=== PATIENT | male | born 1960 | race Caucasian/White ===

== ENCOUNTER 2017-02-26 12:32 | Emergency (ER) | payer OTHER ==
[2017-02-26] MEDS ORDERED: DIPH,PERTUSS(ACELL),TET VAC/PF 0.5 ML DISP.SYRIN IM ONE (12:50)
[2017-02-26] MEDS ORDERED: SODIUM BICARBONATE 2.4 MEQ VIAL INJ ONE (12:53)
[2017-02-26] MEDS ORDERED: Lidocaine 1% 5ml(IM or SUTURE)(PAIN CLINIC) IJ ONE (12:53)
--- NOTE | 2017-02-26 12:57 | ED Physician Documentation ---
Syncope/Near Syncope - HISTORIAN Historian: patient, paramedics - [facility] Chief Complaint: Near Syncope Witnessed: No Position at Time of Episode: sitting Activity at Time of Episode: smoking a cigarette Symptoms Prior to Episode: none Character of Events(s): almost passed out Location of Injury: face (chin) Associated Symptoms: none Further Comments: yes (57 year old male patient brought in via EMS with laceration to chin. Patient reports he was outside smoking. States he stood up , got dizzy and fell to the ground. Patient denies any CP or SOB prior to episode. States " I smoked too fast". Patient reports feeling fine before going outside, denies loss of bowel or bladder with episode.) - ROS CONST: denies: recent illness, fever, cough, chills EYES/ENT: none GI/: denies: diarrhea, problems urinating MS/SKIN/LYMPH: denies: joint pain, leg swelling, rash, swollen glands, ankle swelling, other NEURO/PSYCH: denies: confusion, anxiety, depression, other - PAST HX Cardiac Disease: none PE Risk Factors: none Surgeries/Procedures: none Immunizations: tetanus (unknown, will up date today) Allergies/Adverse Reactions: Allergies Allergy/AdvReac Type Severity Reaction Status Date / Time No Known Allergies Allergy Verified 08/20/15 14:50 Home Medications: Ambulatory Orders Medication Instructions Recorded NK [NK] 08/20/15 - SOCIAL HX Smoking History: cigarettes - FAMILY HX Family History: denies: none - VITAL SIGNS Vital Signs: Vital Signs Temp Pulse Resp BP Pulse Ox 98.1 F 82 18 175/92 98 02/26/17 12:32 02/27/17 01:03 02/27/17 01:03 02/27/17 01:03 02/27/17 01:03 - REVIEWED ASSESSMENTS Nursing Assessment Reviewed: Yes Vitals Reviewed: Yes Procedures Wound Location: face (chin) Wound's Depth, Shape: linear (3.5) Wound Explored: clean Irrigated w/ Saline (ccs): 500 Betadine Prep?: No (chlorhexidine) Anesthesia: 1% Lidocaine Volume of Anesthetic: 5 Wound Repaired With: sutures Suture Size/Type: 6:0 Number of Sutures: 6 Layer Closure?: Yes Deep Layer Suture Size/Type: 6:0 Number Deep Layer Sutures: 2 Progress: Wound cleaned and irrigated with NS and chlorhexidine. No FB. Anesthetized with lidocaine with neut. Patient tolerated well. 5.0 vicryl x 2 sutures sub q sutures. 6.0 ethilon x 6 sutures- edges well approximated Patient now complaining of "worse headache of my life". will progress with CT head Progress - EKG/XRAY/CT EKG: NSR ED Results Lab/Radiology - Lab Results Lab Results: Lab Results 02/26/17 02/26/17 02/26/17 13:15 13:15 12:35 WBC 4.30 K/ul K/ul (4.00-12.00) RBC 4.45 M/ul M/ul (3.90-5.20) Hgb 15.4 g/dL g/dL (12.0-18.0) Hct 43.9 % % (37.0-53.0) MCV 98.6 fl fl (80.0-100.0) MCH 34.6 pg H pg (28.0-34.0) MCHC 35.1 g/dL g/dL (30.0-36.0) RDW 12.7 % % (11.3-14.3) Plt Count 119 K/mm3 L K/mm3 (130-400) Neut % (Auto) 55.1 % % (39.0-79.0) Lymph % (Auto) 35.6 % % (16.0-50.0) Galax % (Auto) 4.2 % % (0.0-11.0) Eos % (Auto) 3.0 % % (0.0-6.8) Baso % (Auto) 0.5 (0.0-1.5) Neut # (Auto) 2.4 # k/uL # k/uL (1.4-7.7) Lymph # (Auto) 1.5 # k/uL # k/uL (0.6-4.0) Galax # (Auto) 0.2 # k/uL # k/uL (0.0-0.9) Eos # (Auto) 0.1 # k/uL # k/uL (0.0-0.6) Baso # (Auto) 0.0 # k/uL # k/uL (0.0-0.5) Reactive Lymphs % 1.6 % % (0.0-5.0) Reactive Lymphs # 0.1 # k/uL # k/uL (0.0-0.8) Sodium 133 mmol/L L mmol/L (136-145) Potassium 3.6 mmol/L mmol/L (3.5-5.1) Chloride 96 mmol/L L mmol/L (98-107) Carbon Dioxide 27 mmol/L mmol/L (22-30) BUN 4 mg/dL L mg/dL (9-20) Creatinine 0.90 mg/dL mg/dL (0.66-1.25) Est GFR ( Amer) > 60 (60 - ) Est GFR (Non-Af Amer) > 60 (60 - ) Glucose 107 mg/dL H mg/dL (74-106) Calcium 8.8 mg/dL mg/dL (8.4-10.2) Total Bilirubin 0.9 mg/dL mg/dL (0.2-1.3) AST 65 U/L H U/L (15-46) ALT 66 U/L U/L (13-69) Alkaline Phosphatase 79 U/L U/L (38-126) Total Protein 7.2 g/dL g/dL (6.3-8.2) Albumin 4.1 g/dL g/dL (3.5-5.0) Influenza A (Rapid) Negative (NEGATIVE) Influenza B (Rapid) Negative (NEGATIVE) - Radiology Radiology Impressions: Examination: CT head without contrast History: Fall. Headache Comparison exam: None available Technique: Noncontrast head CT protocol. Findings: Ventricles and sulci are mildly prominent, though consistent for patient age. Cerebrocerebellar parenchyma demonstrates periventricular low attenuation consistent with small vessel disease. No evidence for parenchymal hemorrhage. No evidence for mass or mass effect. No midline shift. No extra axial fluid collections. Partial visualization of the paranasal sinuses, mastoid air cells, orbits, skull and scalp without gross irregularity. Vascular calcifications. Impression: Age related changes. No acute parenchymal process. No hemorrhage. - Orders Orders: ED Orders Category Date Time Status Orthostatics 1T Care 02/26/17 12:[address] BRAIN W/O CONTRAST Stat Exams 02/26/17 Completed CBC/PLATELET/DIFF Stat Lab 02/26/17 13:15 Completed CMP Stat Lab 02/26/17 13:15 Completed INFLUENZA A&B Stat Lab 02/26/17 12:35 Completed Diph,Pertuss(Acell),Tet Vac/Pf [Adacel] Med 02/26/17 12:50 Discontinued 0.5 ml IM .ONCE ONE Lidocaine 1% 5ml(IM or SUTURE) [Xylocaine] Med 02/26/17 12:53 Discontinued 50 mg IJ NOW ONE Sodium Bicarbonate [Neut] Med 02/26/17 12:53 Discontinued 2.4 meq INJ NOW ONE EKG WITH COMPARISON Stat Ther 02/26/17 12:50 Completed Syncope Physical Exam - Physical Exam General Appearance: mild distress EENT: nml eye inspection, PERRL, nml ENT inspection, no apparent trauma, pharynx nml, no CSF leak Respiratory: no resp distress, chest non-tender, breath sounds normal CVS: reg rate & rhythm, heart sounds normal, equal pulses, no murmur, no gallop , PMI nml, no JVD, no friction rub, 24 Abdomen: non-tender, no organomegaly, nml bowel sounds, no distention Skin: warm/dry, normal color, other (3.5 cm laceration to chin) Extremities: non-tender, normal range of motion, no evidence of injury, no edema , J, CUSTOMER SUCCESS MANAGER - Neuro/Psych Higher Functions: alert, oriented x3, no evidence of acute CVA, mood/affect nml Cranial Nerves: nml as tested Cerebellar: nml as tested, nml gait Sensorimotor: nml motor response, nml sensory response, nml reflexes, nml gait Discharge Clincal Impression: Near syncope Chin laceration Qualifiers: Encounter type: initial encounter Qualified Code(s): S01.81XA - Laceration without foreign body of other part of head, initial encounter Fall from standing Qualifiers: Encounter type: initial encounter Qualified Code(s): W19.XXXA - Unspecified fall, initial encounter Referrals: Primary Doctor,No [Primary Care Provider] - 2 Days Additional Instructions: Keep the wound clean and dry until it has healed. You can wash or shower after 24 hours. Do not soak the wound in water and make sure it is dry afterwards (gently pat the area dry with a clean towel). Do not get into a swimming pool, hot tub, malik or river until your stitches are removed. To remove your dressing, gently pull it off. If needed, you can dampen it with water then gently pull it off. Clean the laceration twice a day with hibiclens and rinse with water clean away any scabbed area Apply thin coat of antibiotic ointment after cleaning the wound. Cover with non-adherent bandage if able. If you have pain, take simple pain relief medication such as Tylenol or ibuprofen. If bandages or dressings get wet, they will need to be changed. Call your doctor for any signs of symptom of infection redness, drainage, pain. Have your stitches removed at your doctors office in 7-10 days. Discharged with bactroban ointment apply a thin coat twice a day. Return to ER if if you have any of the follow symptoms: 1.More sleepy or confused 2.Severe or worsening headache 3.Seizure 4.Vomiting, fever >101.5, or stiff neck 5.Loss of control or urine or bowel 6.Trouble walking 7.Use Tylenol every 4 hours as needed for Headache 8.Diet: Start with Clear liquids and advance diet as tolerated. . Condition: Stable Disposition: 01 HOME, SELF-CARE Decision to Admit: NO Decision Time: 14:27
[2017-02-26 13:23] LABS: BASOPHILS % 0.5 (0.0-1.5); MEAN CORPUSCULAR HEMOGLOBIN 34.6 pg (28.0-34.0); MEAN CORPUSCULAR VOLUME 98.6 fl (80.0-100.0); MONOCYTES % 4.2 % (0.0-11.0); NEUTROPHILS # 2.4 # k/uL (1.4-7.7)
[2017-02-26 13:35] LABS: eGFR (African) > 60; eGFR (Non-African) > 60
--- NOTE | 2017-02-26 14:36 | Diagnostic Imaging Report ---
[facility] [address] [facility] [address] [place], [place]. [address] Report Submission Date: Feb 26, 2017 2:25:31 PM GRINDER SET UP OPERATOR JIG Patient Study Name: ALINA BRUNO Date: Feb 26, 2017 2:02:56 PM GRINDER SET UP OPERATOR JIG Modality Type: CT\SR Gender: M Description: CT BRAIN W/O CONTRAST : 64 Institution: [facility] Physician: BRENT WU (FRAME CATCHER) - ER Examination: CT head without contrast History: Fall. Headache Comparison exam: None available Technique: Noncontrast head CT protocol. Findings: Ventricles and sulci are mildly prominent, though consistent for patient age. Cerebrocerebellar parenchyma demonstrates periventricular low attenuation consistent with small vessel disease. No evidence for parenchymal hemorrhage. No evidence for mass or mass effect. No midline shift. No extra axial fluid collections. Partial visualization of the paranasal sinuses, mastoid air cells, orbits, skull and scalp without gross irregularity. Vascular calcifications. Impression: Age related changes. No acute parenchymal process. No hemorrhage. Electronically signed on Feb 26, 2017 2:25:31 PM GRINDER SET UP OPERATOR JIG by: Evangelista BELLA
[2017-02-27 01:06] VITALS: BP 175/92
== END 2017-02-26 16:06 | disposition home or self-care (01) ==
LOC: SUPCPDRO 12:32 → ED 12:32
DX: S01.81XA Laceration without foreign body of other part of head, initial encounter (principal); W19.XXXA Unspecified fall, initial encounter; R55 Syncope and collapse; F17.210 Nicotine dependence, cigarettes, uncomplicated
CPT/HCPCS: 12013; 36415; 70450; 80053; 85025; 87400; 90471; 96372; 99283

== ENCOUNTER 2018-03-13 14:15 | Outpatient (CLI) | payer OTHER ==
[2017-02-27 01:06] VITALS: BP 175/92
[2018-03-13 14:44] LABS: BASOPHILS % 0.5 (0.0-1.5); EOSINOPHILS % 4.4 % (0.0-6.8); MEAN CORPUSCULAR HEMOGLOBIN 33.9 pg (28.0-34.0); MONOCYTES % 5.8 % (0.0-11.0)
[2018-03-13 14:53] LABS: eGFR (Non-African) > 60
== END 2018-03-13 14:25 ==
LOC: LAB 14:15
PROVIDERS: ATTEND Family Medicine
DX: F10.10 Alcohol abuse, uncomplicated (principal)
CPT/HCPCS: 36415; 80053; 85025

== ENCOUNTER 2018-07-10 14:45 | Outpatient (CLI) | payer OTHER ==
[2017-02-27 01:06] VITALS: BP 175/92
--- NOTE | 2018-07-10 16:56 | Diagnostic Imaging Report ---
JUAN FRANCISCO LANGLEY [facility] [address] [facility] [address] [place], [place]. [address] Report Submission Date: July 10, 2018 4:51:09 PM CDT Patient Study Name: ALINA BRUNO Date: July 10, 2018 2:49:27 PM CDT Modality Type: DX Gender: M Description: SHOULDER 2 VIEWS OR MORE : 64 Institution: [facility] Physician: JUAN FRANCISCO LANGLEY LEFT SCAPULA HISTORY: LT SHOULDER PAIN WHEN LAYING ON IT. FINDINGS: PA and lateral views of the scapula demonstrate no evidence of fracture or other acute abnormality. AC joint and glenohumeral joint are normal. Ribs included on the study are unremarkable. Calcified granulomatous changes in the left lung and hilum are present. IMPRESSION: Unremarkable study. Electronically signed on July 10, 2018 4:51:09 PM CDT by: Chino BELLA
== END 2018-07-10 14:47 ==
LOC: RAD 14:45
PROVIDERS: ATTEND Family Medicine
DX: M25.512 Pain in left shoulder (principal)
CPT/HCPCS: 73030

== ENCOUNTER 2019-03-11 10:41 | Emergency (ER) | payer OTHER ==
[2017-02-27 01:06] VITALS: BP 175/92
--- NOTE | 2019-03-11 11:11 | ED Physician Documentation ---
General Adult - HISTORIAN Historian: patient, spouse - HPI Stated Complaint: Fever, CC Chief Complaint: General Adult Onset: days ago (7) Timing: still present Severity: moderate Further Comments: yes (Pt is a 59 yo male with cough, congestion, fever x 1 week.) - ROS CONST: no problems EYES/ENT: none CVS/RESP: chest pain (2nd to cough), cough GI/: none MS/SKIN/LYMPH: none - PAST HX Past History: none Other History: none Allergies/Adverse Reactions: Allergies Allergy/AdvReac Type Severity Reaction Status Date / Time No Known Drug Allergies Allergy Verified 03/11/19 10:56 Home Medications: Ambulatory Orders Medication Instructions Recorded NK 08/20/15 - SOCIAL HX Smoking History: cigarettes - FAMILY HX Family History: No - VITAL SIGNS Vital Signs: Vital Signs Temp Pulse Resp BP Pulse Ox 102.5 F H 96 H 24 174/72 92 03/11/19 10:42 03/11/19 10:42 03/11/19 10:42 03/11/19 10:42 03/11/19 10:42 - REVIEWED ASSESSMENTS Nursing Assessment Reviewed: Yes Vitals Reviewed: Yes Progress - Progress Progress: CXR: Mild chronic changes in the lungs. No acute infiltrate other abnormality. Rx Z-royal, as directed. Rx Robitussin AC 10 ml po q 4-6 h prn, disp: 240 ml. ED Results Lab/Radiology - Orders Orders: ED Orders Category Date Time Status CHEST 2VIEW [RAD] Stat Exams 03/11/19 10:58 Ordered Acetaminophen [Tylenol] Med 03/11/19 11:06 Discontinued 650 mg PO NOW ONE General Adult Physical Exam - PHYSICAL EXAM GENERAL APPEARANCE: mild distress EENT: pharynx normal NECK: normal inspection, supple RESPIRATORY: no resp distress, chest non-tender, breath sounds normal CVS: reg rate & rhythm, heart sounds normal ABDOMEN: soft, no organomegaly, normal bowel sounds BACK: normal inspection, no CVA tenderness SKIN: warm/dry, normal color EXTREMITIES: non-tender, normal range of motion, no evidence of injury NEURO: oriented X3, motor nml, sensation nml Discharge Clincal Impression: URI (upper respiratory infection) Qualifiers: URI type: unspecified URI Qualified Code(s): J06.9 - Acute upper respiratory infection, unspecified Referrals: Tremaine Samano MD [Primary Care Provider] - Condition: Stable Disposition: 01 HOME, SELF-CARE Decision to Admit: NO Decision Time: 11:31
[2019-03-11] MEDS: ACETAMINOPHEN 325 MG TABLET PO ONE (11:12)
--- NOTE | 2019-03-13 13:25 | Diagnostic Imaging Report ---
[facility] [address] [facility] [address] Patient Name: ALINA BRUNO Referring Physician: Piotr Fernando Date of : 1960 Gender: M Date of Service: 03/11/2019 Exam Requested: CHEST 2VIEW CHEST XRAY HISTORY: FEVER AND COUGH; COUGH FOR 2 WEEKS. FINDINGS: PA and lateral chest x-ray demonstrate lungs to be clear of focal infiltrates and expanded bilaterally. Calcified granulomatous changes in both lungs are seen with mild fibronodular scarring. The cardiac silhouette is normal in size and contour. Bones of the region are unremarkable. IMPRESSION: Mild chronic changes in the lungs. No acute infiltrate other abnormality. NE
== END 2019-03-11 11:38 | disposition home or self-care (01) ==
LOC: ED 10:41
DX: J06.9 Acute upper respiratory infection, unspecified (principal); F17.210 Nicotine dependence, cigarettes, uncomplicated
CPT/HCPCS: 99284